=== PATIENT | male | born 1985 | race Hispanic/Latino ===

== ENCOUNTER 2020-12-11 16:19 | Emergency (ER) | payer BC ==
[~2020-12-11 16:19] MED LIST: Iopamidol-370 76% 500 ML 1 ML ONE
[2020-12-11] MEDS ORDERED: Acetaminophen 500 MG TAB ONE ×3 (17:31→17:32)
[2020-12-11 17:37] LABS: #Lymphocytes 0.9 thou/uL (1.20-3.40); #Monocytes 0.5 thou/uL (0.11-0.59); #Neutrophils 6.4 thou/uL (1.40-6.50); %Basophils 0.4 % (0.0-1.0); %Eosinophils 0.2 % (0.0-10.0); %Lymphocytes 11.9 % (21.0-51.0); %Monocytes 6.4 % (0.0-10.0); %Neutrophils 81.2 % (42.0-75.0); Hemoglobin 16.4 g/dL (14.0-18.0); Mean Corpuscular HGB CONC 34.2 g/dL (32.0-36.0); Mean Corpuscular Hemoglobin 33.4 pg (27.0-31.0); Mean Corpuscular Volume 97.7 fL (78.0-98.0); Mean Platelet Volume 8.8 fL (7.4-10.4); Platelet Count 154 thou/uL (130-400); RBC Distribution Width 11.3 % (11.5-14.5); Red Blood Cell (RBC) Count 4.92 mill/uL (4.70-6.10); White Blood Cell (WBC) Count 7.9 thou/uL (4.8-10.8)
--- NOTE | 2020-12-11 17:48 | RAD ---
Chest one view HISTORY: Dyspnea. COVID positive. COMPARISON: 06/15/2015. FINDINGS: Cardiac silhouette is magnified by projection. Pulmonary vasculature is unremarkable. Mediastinum is midline. No lobar consolidation or evidence of pneumothorax. Metallic rings overlie each level. IMPRESSION : No acute abnormalities are demonstrated.
[2020-12-11 17:59] LABS: ALT (SGPT) 154 U/L (8-55); AST (SGOT) 78 U/L (5-34); Albumin 4.4 g/dL (3.5-5.0); Alkaline Phosphatase 73 U/L (40-110); Anion Gap 18 mmol/L (10-20); BUN (Urea Nitrogen) 15 mg/dL (8.9-20.6); Bilirubin, Total 0.7 mg/dL (0.2-1.2); Calc. Creatinine Clearance 0 mL/min (70-130); Calcium 9.1 mg/dL (7.8-10.44); Carbon Dioxide 23 mmol/L (22-29); Chloride 98 mmol/L (98-107); Glucose 298 mg/dL (70-105); Potassium 4.6 mmol/L (3.5-5.1); Protein, Total 8.4 g/dL (6.0-8.3); Sodium 134 mmol/L (136-145)
[2020-12-11] MEDS ORDERED: Albuterol 200 PUFF (6.7GM INHALER) ONE (19:20)
--- NOTE | 2020-12-11 19:27 | CT ---
CT angiogram chest: 12/11/2020 COMPARISON: None HISTORY: Covid positive patient with dyspnea TECHNIQUE: Axial CT imaging at 2.5 mm intervals through the chest with IV contrast using CT angiogram protocol. Coronal and sagittal 3-D reformatted imaging obtained. FINDINGS: Imaged upper abdomen demonstrates diffuse hepatic hypodensity consistent with steatosis. No nspecific splenomegaly noted, the spleen measuring 16 cm in AP dimension. No pleural, pericardial, or mediastinal fluid is seen. No axillary lymphadenopathy. Enlarged subcarinal lymph nodes measure up to 1.7 cm. Mildly prominent l ymph nodes are seen in the AP window. Bilateral hilar adenopathy noted measuring 1.4 cm short axis dimension on the right and 1.2 cm short axis dimension on the left. There is significant mixing artifact limiting assessment for pulmonary arterial embolism within the p ulmonary arterial trunk and bilateral main pulmonary arteries. Limited assessment for pulmonary arterial embolism demonstrates no convincing evidence for acute pulmonary arterial embolism. Motion a rtifact and suboptimal opacification limits detailed assessment of the distal pulmonary arterial branches. There are extensive scattered peripheral areas of patchy focal groundglass opacity bilaterally, scatt ered throughout both upper lobes, bilateral lower lobes (right greater than left), and within the right middle lobe. These findings are suspicious for extensive multifocal bilateral Covid pneumonia. No pneumothorax. No acute osseous abnormality. IMPRESSION: Multifocal extensive bilateral groundglass opacity suspicious for bilateral Covid pneumon ia. Suboptimal assessment for pulmonary arterial embolism appears grossly unremarkable. Hepatic steatosis with nonspecific splenomegaly.
[2020-12-11] MEDS ORDERED: Ibuprofen 800 MG TAB ONE (19:35)
[2020-12-11 20:52] LABS: Lactic Acid 1.7 mmol/L (0.5-2.2)
--- NOTE | 2020-12-15 11:15 | EKG ---
Test Reason : Blood Pressure : / mmHG Vent. Rate : 132 BPM Atrial Rate : 132 BPM P-R Int : 142 ms QRS Dur : 092 ms QT Int : 284 ms P-R-T Axes : 030 061 -05 degrees QTc Int : 420 ms Sinus tachycardia Incomplete right bundle branch block Possible Inferior infarct , age undetermined Possible Anterior infarct , age undetermined Abnormal ECG Confirmed by BARNEY STRICKLAND ([id number]), film and video editor CHAYO SCALES ([id number]) on 12/15/2020 11:15:19 AM Referred By: Confirmed By:BARNEY STRICKLAND
== END 2020-12-11 20:59 | disposition home or self-care (01) ==
LOC: ERS 16:19
DX: U07.1 COVID-19 (principal); J12.82 Pneumonia due to coronavirus disease 2019; E11.65 Type 2 diabetes mellitus with hyperglycemia; R00.0 Tachycardia, unspecified; Z79.899 Other long term (current) drug therapy; Z79.4 Long term (current) use of insulin; J45.909 Unspecified asthma, uncomplicated; I10 Essential (primary) hypertension; F17.210 Nicotine dependence, cigarettes, uncomplicated
CPT/HCPCS: 36415; 71045; 71275; 80053; 83605; 84484; 85025; 85379; 87040; 93005; Q9967